=== PATIENT | female | born 1945 | race Caucasian/White ===

== ENCOUNTER 2019-01-01 15:52 | Emergency (ER) | payer OTHER, SELFPAY ==
[2019-01-01 16:00] VITALS: BP 125/55; PULSE 59; RESP 18; TEMP 36.4; O2SAT 99
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
== END 2019-01-01 19:35 | disposition home or self-care (01) ==
PROVIDERS: Emergency Provider Emergency Medicine
DX: M25.78 Osteophyte, vertebrae (principal); S06.0X0A Concussion without loss of consciousness, initial encounter; V89.2XXA Person injured in unspecified motor-vehicle accident, traffic, initial encounter
CPT/HCPCS: 70450; 72125; 99282; 99283